=== PATIENT | female | born 1980 | race African-American/Black ===

== ENCOUNTER 2018-07-13 20:57 | Emergency (ER) | payer OTHER ==
[~2018-07-13] VITALS: Ht 160 cm; Wt 69.9 kg
[2018-07-13 21:04] VITALS: BP 130/83
--- NOTE | 2018-07-13 21:23 | PHYS DOC ---
Past Medical History Past Medical History: Depression, Other Additional Past Medical Histor: SEASONAL ALLERGIES Past Surgical History: Hysterectomy, Other Additional Past Surgical Histo: MYOMECTOMY Alcohol Use: Rarely Drug Use: None Adult General Chief Complaint Chief Complaint: SORE THROAT HPI HPI Patient is a 37 year old female who presents with complaining of sore throat. Patient complaining of cough and sore throat for one week that getting worse with swallowing and talking that did not get better with taking Tylenol. Patient denies fever, headache, nausea, sick contacts, history of strep infection. Review of Systems Review of Systems Constitutional: Denies fever or chills [] Eyes: Denies change in visual acuity, redness, or eye pain [] HENT: Denies nasal congestion, reports sore throat [] Respiratory: Denies cough or shortness of breath [] Cardiovascular: No additional information not addressed in HPI [] GI: Denies abdominal pain, nausea, vomiting, bloody stools or diarrhea [] : Denies dysuria or hematuria [] Musculoskeletal: Denies back pain or joint pain [] Integument: Denies rash or skin lesions [] Neurologic: Denies headache, focal weakness or sensory changes [] Endocrine: Denies polyuria or polydipsia [] All other systems were reviewed and found to be within normal limits, except as documented in this note. Allergies Allergies Allergies Coded Allergies Type Severity Reaction Last Updated Verified NSAIDS (Non-Steroidal Anti-Inflamma Allergy Intermediate 07/13/18 Yes shellfish derived Allergy Unknown 07/13/18 Yes Physical Exam Physical Exam Constitutional: Well developed, well nourished, mild distress, non-toxic appearance. [] HENT: Normocephalic, atraumatic, bilateral external ears with cerumen impaction, oropharynx moist, pharyngeal erythema and edema and right tonsillar exudate, no oral exudates, nose normal. [] Eyes: PERRLA, EOMI, conjunctiva normal, no discharge. [] Neck: Normal range of motion, no tenderness, supple, no stridor, cervical lymphadenopathy. [] Cardiovascular:Heart rate regular rhythm, no murmur [] Lungs & Thorax: Bilateral breath sounds clear to auscultation [] Abdomen: Bowel sounds normal, soft, no tenderness, no masses, no pulsatile masses. [] Skin: Warm, dry, no erythema, no rash. [] Back: No tenderness, no CVA tenderness. [] Extremities: No tenderness, no cyanosis, no clubbing, ROM intact, no edema. [] Neurologic: Alert and oriented X 3, normal motor function, normal sensory function, no focal deficits noted. [] Psychologic: Affect normal, judgement normal, mood normal. [] Current Patient Data Vital Signs Vital Signs Date Time Temp Pulse Resp B/P (MAP) Pulse Ox O2 Delivery O2 Flow Rate FiO2 07/13/18 21:04 99.0 83 16 130/83 (99) 96 Room Air 99.0 EKG EKG [] Radiology/Procedures Radiology/Procedures [] Course & Med Decision Making Course & Med Decision Making Pertinent Labs reviewed. (See chart for details) Evolution of patient in ER showed 37-year-old female patient with sore throat for one week with edema and erythema and enlarged tonsils with negative strep test. Plan discharge patient home with diagnosis of acute pharyngitis. Dragon Disclaimer Dragon Disclaimer This electronic medical record was generated, in whole or in part, using a voice recognition dictation system. Departure Departure Impression: Primary Impression: Acute pharyngitis Disposition: HOME, SELF-CARE (at [id number]) Condition: STABLE Patient Instructions: Viral and Bacterial Pharyngitis Additional Instructions: Drink plenty of liquids Follow-up with your primary care physician in 3-5 days Return to ER if not getting better Scripts Tramadol Hcl (ULTRAM) 50 Mg Tablet 50 MG PO Q6HRS PRN for PAIN, #14 TAB 0 Refills Prov: LEONA THOMAS MD 07/13/18 Amoxicillin/Potassium Clav (AUGMENTIN 875-125 TABLET) 1 Each Tablet 1 TAB PO Q12HR, #20 TAB Prov: LEONA THOMAS MD 07/13/18 Problem Qualifiers Primary Impression: Acute pharyngitis Pharyngitis/tonsillitis etiology: unspecified etiology Qualified Codes: J02.9 - Acute pharyngitis, unspecified LEONA THOMAS MD July 13, 2018 21:23
[2018-07-13] MEDS ORDERED: AMOX1TAB61 PO (21:47)
[2018-07-13] MEDS ORDERED: TRAM-48 PO (21:47)
== END 2018-07-13 22:15 | disposition home or self-care (01) ==
LOC: ER 20:57
DX: J02.9 Acute pharyngitis, unspecified (principal); R05 Cough; Z91.013 Allergy to seafood; Z88.6 Allergy status to analgesic agent
CPT/HCPCS: 87070; 87880; 99283